=== PATIENT | female | born 1975 | race Hispanic/Latino ===

== ENCOUNTER 2016-10-10 13:59 | Emergency (ER) | payer OTHER ==
[~2016-10-10] VITALS: Ht 157.5 cm; Wt 88.6 kg
[~2016-10-10 13:59] MED LIST: ALBU8.5H2 INHALATION; NPR500T PO
[2016-10-10 14:09] VITALS: BP 146/99; PULSE 84; RESP 16; O2SAT 99
--- NOTE | 2016-10-10 15:35 | ED.REPORT ---
HPI-Dental/Mouth Prob Date of Service Oct 10, 2016 ED Provider: Alex Valderrama MD History of Present Illness: migraines usually takes tylenol and rest . tooth has infection, hydrocodone not helping. appointment tomorrow at [facility]. 04/27 vomit times 1 earlier today Nursing Notes Stated Complaint: HEADACHE,TOOTHACHE Chief Complaint: Headache Nursing Notes Reviewed: Yes Allergies: Coded Allergies: No Known Allergies (Unverified , 10/10/16) Scheduled Albuterol HFA (Proair HFA) 8.5 Gm Hfa.aer.ad 2 PUFFS INHALATION Q4H Scheduled PRN Naproxen (Naproxen) 500 Mg Tab 500 MG PO BID PRN PRN For Pain General Time Seen by MD: 15:34 Chief Complaint Tooth pain, Other (migraine) Hx Obtained From: Patient Arrived By: Walk-in Onset Occurred: Just prior to arrival Symptom Duration: Since onset Severity: Current: Mild Pertinent Negative: Pt denies other symptoms Recent Healthcare: No recent doctor visit, No recent hospitalization Similar Sx Previous: No Past Medical History Past Medical History Hx of ovarian cyst Hx of Meningitis depression Reports: Asthma Past Surgical History Umbilical hernia repair, ovarian cyst removal Reports: Cholecystectomy Family History Mom - DM, HTN Sister - ovarian cancer Smoking History Never Smoker Social History Alcohol Use: Denies alcohol use Drug Use: Denies drug use Other Social History: Good social support, Local resident Occupation lives with Mom and 6 kids ( 3 adults), no work or school 10/10/2016 Ambulatory Status Independent Review of Systems Basic Review of Systems Eyes: Vision NL Cardiovascular: No chest pain Hematologic: No bleeding, No bruising Psychiatric: Normal thought content Complete sys rev & neg: except as marked. Physical Exam Initial Vital Signs Vital Signs (First) Date Time Temp Pulse Resp B/P Pulse Ox O2 Delivery O2 Flow Rate FiO2 10/10/16 14:09 36.3 84 16 146/99 99 Room Air Initial VS: Reviewed, Vital signs normal General/Constitutional: Well-developed, Well-nourished Head / Eyes: Atraumatic, Normocephalic, PERRL Respiratory: Breath sounds normal, Clear to auscultation, No respiratory distress Cardiovascular: Regular rate & rhythm, Heart sounds normal, Intact distal pulses Abdomen / GI: Soft, Non-tender, No guarding, No rebound, No distention Back: No CVA tenderness Lymphatic: No lymphadenopathy Extremities: Vascular intact, Neuro intact, No swelling, No tenderness Skin: Warm, Dry, No cyanosis Neurologic: Alert, Oriented, Nonfocal Psychiatric: Mood/affect normal, Behavior normal, Normal thought content ENT: Atraumatic, Airway patent, Mucous membranes moist, Pharynx NL left lower molar has extensive decay with mild erthyma on gum line. no facial swelling. no trismus Neck: Atraumatic, Supple, No meningismus, Full range of motion, No adenopathy tooth in question General/Constitutional: Awake, Alert, No acute distress, Well appearing, Well developed, Well hydrated, Well nourished, Cooperative, Not toxic appearing Head / Eyes: Atraumatic, Normocephalic, PERRL, EOMI Respiratory / Chest: Atraumatic, Breath sounds NL, Breath sounds = bilat, No respiratory distress Cardiovascular: Heart rate NL, Regular rhythm, Heart sounds NL, No gallop Re-Eval/Medical Decision Med Decision/Clinical Course 41 year old female with her baseline migraine, made worse with dental infection. No sign of abscess formation, cellulitis or thrush Counseled Regarding: Diagnosis, Lab results, Need for follow-up Discharge & Departure Primary Impression: Migraine Migraine type: periodic headache syndrome Additional Impression: Dental caries Discharge Condition All VS Reviewed: Yes Condition: Stable Patient Instructions: Dental Caries (ED), Migraine Headache (ED) Additional Instructions: I am sorry you are hurting. The toradol injection will help with the pain. You are being started on antibiotics, amoxicillin. You can also use an ice pack to the tooth area. I am glad you have an appointment with the dentist. Please keep the appointment. You are being provided the pill version to help with pain at home. Referrals: [facility] EDSupervising Provider for APC: Alex Valderrama MD Attestation Portions of this note were transcribed by Marguerite Mcdonald. I, Dr. Valderrama personally performed the history, physical exam and medical decision-making; I reviewed and confirmed the accuracy of the information in the transcribed note. Signed by: alejandro Price. 10/10/2016, 11:30. copies to: [facility] JaspreetAlicia vargas CODI Oct 10, 2016 15:35 MARGUERITE MCDONALD Oct 10, 2016 15:42
[2016-10-10] MEDS ORDERED: Ketorolac 30 mg/mL 2 mL Inj IM ONE (15:45)
[2016-10-10 16:18] VITALS: BP 119/83; PULSE 81; RESP 14; O2SAT 96
== END 2016-10-10 16:21 ==
LOC: SED 13:59
DX: G43.909 Migraine, unspecified, not intractable, without status migrainosus (principal); K02.9 Dental caries, unspecified; J45.909 Unspecified asthma, uncomplicated
CPT/HCPCS: 96372; 99283; J1885

== ENCOUNTER 2016-10-25 12:31 | Emergency (ER) | payer OTHER ==
[~2016-10-25] VITALS: Ht 157.5 cm; Wt 88.6 kg
[2016-10-25 12:37] VITALS: BP 111/80; PULSE 109; RESP 16; O2SAT 98
[2016-10-25 13:32] LABS: BASOPHILS % (AUTO) 0.1 % (0-3); EOSINOPHILS % (AUTO) 0.9 % (0-5); MONOCYTES % (AUTO) 6.2 % (4-12); Mean Corpuscular Hemoglobin 29.9 pg (27.0-35.0); Mean Corpuscular Volume 89.6 fL (81-100); NEUTROPHILS % (AUTO) 81.8 % (40-74); Platelet Count 356 bil/L (150-400)
[2016-10-25 14:03] LABS: APPEARANCE,URINE HAZY (CLEAR,HAZY); COLOR,URINE YELLOW (YELLOW); OCCULT BLOOD,URINE NEGATIVE (NEGATIVE); UROBILINOGEN,URINE NORMAL (NORMAL)
--- NOTE | 2016-10-25 16:28 | PCM.EDPN ---
ED Note Date of Service Oct 25, 2016 Patient left prior to being seen and evaluated however labs were drawn, patient has a minimal elevation of her LFTs which has been present in the past and not likely significant, no leukocytosis, reassuring vital signs, no urinary tract infection. Sg Hartman DO Oct 25, 2016 16:28
== END 2016-10-25 15:28 | disposition left against medical advice (07) ==
LOC: SED 12:31
DX: Z53.20 Procedure and treatment not carried out because of patient's decision for unspecified reasons (principal)

== ENCOUNTER 2016-11-21 18:20 | Emergency (ER) | payer OTHER ==
[~2016-11-21] VITALS: Ht 157.5 cm; Wt 97.0 kg
[~2016-11-21 18:20] MED LIST changes: -NPR500T PO
[2016-11-21 18:28] VITALS: BP 118/84; PULSE 75; RESP 18; O2SAT 97
--- NOTE | 2016-11-21 20:17 | ED.REPORT ---
HPI-Headache Date of Service Nov 21, 2016 ED Provider: Alex Valderrama MD Pt is a 41 year old female with a long history of headaches who was referred to the ER from urgent care due to a sudden onset of a sharp R frontal headache at 1330 while working. Pain radiates to L frontal area and posteriorly. Pt has taken OTC Ibuprofen without relief. Pt reports vomiting secondary to the pain. The pain is similar but more severe than most headaches. Pain exacerbated with sound and light. She also reports numbness on L side which was similar to prevous headaches. Pt denies weakness. LNMP November 10. Pt has an appointment with the neurologist on December 05 for this. Nursing Notes Stated Complaint: HEADACHE SENT FROM Chief Complaint: Headache Nursing Notes Reviewed: Yes Allergies: Coded Allergies: No Known Allergies (Unverified , 10/25/16) Scheduled Albuterol HFA (Proair HFA) 8.5 Gm Hfa.aer.ad 2 PUFFS INHALATION Q4H General Time Seen by MD: 19:16 Chief Complaint Headache Hx Obtained From: Patient Arrived By: Walk-in Sudden in Onset?: Yes Onset Occurred: 5 - 8 hours ago Symptom Duration: Since onset Location: : Frontal left: Frontal right Quality: Painful Severity: Current: Severe Associated with: Reports: Nausea, Photophobia, Vomiting Exacerbated by: Light, Sound Past Medical History Past Medical History Hx of ovarian cyst Hx of Meningitis depression headache Reports: Asthma Past Surgical History Umbilical hernia repair, ovarian cyst removal Reports: Cholecystectomy Family History Mom - DM, HTN Sister - ovarian cancer Smoking History Never Smoker Social History Alcohol Use: Denies alcohol use Drug Use: Denies drug use Other Social History: Good social support, Local resident Occupation lives with Mom and 6 kids ( 3 adults), no work or school 10/10/2016 Ambulatory Status Independent Review of Systems Basic Review of Systems Respiratory: No shortness of breath, No cough, No wheeze Cardiovascular: No chest pain, No dyspnea on exertion, No orthopnea, No parox noct dyspnea, No palpitations Constitutional: Denies: Chills, Fever Eyes: Reports: Photophobia GI: Reports: Nausea, Vomiting, Denies: Abdominal pain Musculoskeletal: Denies: Back pain, Neck pain Neurologic: Reports: Headache, Numbness, Denies: Lightheaded, Slurred speech, Weakness Complete sys rev & neg: except as marked. Physical Exam Initial Vital Signs Vital Signs (First) Date Time Temp Pulse Resp B/P Pulse Ox O2 Delivery O2 Flow Rate FiO2 11/21/16 18:28 36.4 75 18 118/84 97 Room Air Initial VS: Reviewed ENT: Mucous membranes moist, Conjunctiva normal, No scleral icterus Respiratory: Breath sounds normal, Clear to auscultation, No respiratory distress Cardiovascular: Regular rate & rhythm, Heart sounds normal, Intact distal pulses Abdomen / GI: Soft, Non-tender, No distention Extremities: Vascular intact, Neuro intact, No swelling, No tenderness Skin: Warm, Dry, No cyanosis Psychiatric: Mood/affect normal, Behavior normal, Normal thought content General/Constitutional: Awake, Alert, Cooperative speech fluent, linear and organized Head / Eyes: Atraumatic, Normocephalic, PERRL (3mm) Neck: Atraumatic, Supple, No meningismus, Full range of motion Neurologic: Oriented X3, Speech NL, No motor deficits No pronator drift. Grip Boss strength 5/5 in upper extremities. No dysmetria on finger to nose. Re-Eval/Medical Decision Med Decision/Clinical Course In summary, patient is a generally healthy 41 old female with past medical history significant for migraine headaches*, who presents with headache is similar in nature and intensity to prior headaches. Our primary and secondary assessment reveals an awake, alert patient in no acute distress. Hemodynamically stable and afebrile. Exam reveals normal neurologic exam. Suspect the patient's headache represents a migraine or tension type headache. Considered other causes of headache to include: Subdural hemorrhage, subarachnoid hemorrhage, [employer] tumor, meningitis, encephalitis, venous sinus thrombosis, dissection, temporal arteritis, intracranial hypertension ( psuedotumor cerebri), sinusitis or cervicalgia, although these are less likely based on the history, exam, findings as noted above. Based on this, I feel that imaging would be low yield and is not warranted at this time. Discussed the risks and benefits of this with the patient who is in agreement. Also discussed with the patient at length that if symptoms change, worsen, or persist, should return to the ER for reevaluation. They understand and agree with the plan. Given the patient's workup, feel they are safe for discharge. The patient was given IV fluid, Toradol, Reglan and Benadryl here in the emergency department and reported complete resolution of her headache. Re-Evaluation/Progress : Time of Eval: 20:33 Re-Evaluation/Progress Note: Pt improved. Discussed plan for discharge and follow up. All questions addressed. Counseled Regarding: Diagnosis, Need for follow-up, When/why to return to ED Discharge & Departure Impression: Primary Impression: Headache Headache type: unspecified Headache chronicity pattern: unspecified pattern Intractability: not intractable Qualified Code: R51 - Headache Additional Impressions: Migraine headache Migraine type: unspecified Status migrainosus presence: without status migrainosus Intractability: not intractable Qualified Code: G43.909 - Migraine, unspecified, not intractable, without status migrainosus Sensitivity to light Sound sensitivity Laterality: bilateral Qualified Code: H83.3X3 - Noise effects on inner ear, bilateral Disposition: Home Discharge Condition All VS Reviewed: Yes Condition: Improved Additional Instructions: Thank you for seeking care at [facility] emergency room. You were seen in the ER today for a headache. Our primary goal today in the ED was to evaluate you for any life-threatening conditions. Your evaluation was reassuring. Keep your follow up appointment with your neurologist. Return to the ER if you develop numbness, tingling, weakness, or vomiting. Thank you for letting us partake in your care today. Referrals: [facility] (PCP) Scribe Attestation Portions of this note were transcribed by Janice Maldonado. I, (Dr. Alex Valderrama ) personally performed the history, physical exam and medical decision-making; I reviewed and confirmed the accuracy of the information in the transcribed note. Signed by: Janice Maldonado. Isabel, 11/21/20162034 Alex Valderrama MD Nov 21, 2016 20:16 Janice Maldonado Nov 21, 2016 20:26
[2016-11-21] MEDS ORDERED: 0.9% Sodium Chloride 1,000 ML IV ONE (20:21)
[2016-11-21] MEDS ORDERED: MetoCLOpramide 5 mg/mL 2 mL Inj IVPUSH ONE (20:25)
[2016-11-21 21:47] VITALS: BP 127/91; PULSE 63; O2SAT 100
[2016-11-21 22:18] VITALS: BP 127/91; PULSE 63; RESP 18; O2SAT 100
== END 2016-11-21 22:19 | disposition home or self-care (01) ==
LOC: SED 18:20
DX: G43.909 Migraine, unspecified, not intractable, without status migrainosus (principal); H83.3X3 Noise effects on inner ear, bilateral; J45.909 Unspecified asthma, uncomplicated; Z85.43 Personal history of malignant neoplasm of ovary
CPT/HCPCS: 96361; 96374; 96375; 99284; J1200; J1885; J2765; J7030